=== PATIENT | female | born 1985 | race Two or more races ===

== ENCOUNTER 2017-03-08 21:52 | Emergency (ER) | payer MEDICAID ==
[~2017-03-08] VITALS: Ht 160 cm; Wt 82.0 kg
[2017-03-08] MEDS ORDERED: KETOROLAC 30 MG/1 ML ONE (22:55)
[2017-03-08] MEDS ORDERED: ONDANSETRON 2MG/ML, 2ML ONE (22:55)
[2017-03-08 22:59] LABS: HEMATOCRIT 40.9 % (34.6-47.8); HEMOGLOBIN 13.5 g/dL (11.7-16.4); WHITE BLOOD COUNT 11.5 x10^3/uL (3.4-10)
[2017-03-08] MEDS ORDERED: SODIUM CHLORIDE 0.9% 1,000ML IVBOLUS ONE (23:00)
[2017-03-08] MEDS ORDERED: ONDANSETRON 2MG/ML, 2ML IVPush ONE (23:00)
[2017-03-08] MEDS ORDERED: KETOROLAC 30 MG/1 ML IVPush ONE (23:00)
[2017-03-08 23:11] LABS: ASPARTATE AMINO TRANSFERASE 17 U/L (15-37); BLOOD UREA NITROGEN 10 mg/dL (7-18)
[2017-03-08 23:41] LABS: HCG UR LOT HCG7030192
[2017-03-08 23:53] LABS: HCG UR OBC PASS
[2017-03-09 00:56] VITALS: BP 116/67
== END 2017-03-09 00:58 | disposition home or self-care (01) ==
LOC: ED 23:59
DX: R10.32 Left lower quadrant pain (principal)
CPT/HCPCS: 36415; 80053; 81003; 81025; 83690; 85025; 96361; 96374; 96375; 99285; J1885; J2405; J7030

== ENCOUNTER 2018-11-07 20:31 | Emergency (ER) | payer MEDICAID ==
[~2018-11-07] VITALS: Ht 160 cm; Wt 70.7 kg
[2018-11-07] MEDS ORDERED: MECLIZINE CHEWABLE 25 MG TAB PO ONE (21:30)
[2018-11-07] MEDS ORDERED: MECLIZINE CHEWABLE 25 MG TAB ONE (21:41)
[2018-11-07 21:48] VITALS: BP 111/76
[2018-11-07 22:00] LABS: BASOPHILS # (AUTO) 0.05 x10^3/uL (0-0.1); BASOPHILS % (AUTO) 0 % (0-1); EOSINOPHILS # (AUTO) 0.43 x10^3/uL (0-0.4); EOSINOPHILS % (AUTO) 3 % (1-7); LYMPHOCYTES # (AUTO) 3.44 x10^3/uL (1-3.4); LYMPHOCYTES % (AUTO) 26 % (22-44); MD NO; MEAN CORPUSCULAR HEMOGLOBIN 30.7 pg (27.0-34.8); MEAN CORPUSCULAR HGB CONC 33.2 g/dL (32.4-35.8); MEAN CORPUSCULAR VOLUME 92.6 fL (80-100); MEAN PLATELET VOLUME 10.6 fL (7.4-10.4); MONOCYTES # (AUTO) 0.82 x10^3/uL (0.2-0.8); MONOCYTES % (AUTO) 6 % (2-9); NEUTROPHILS # (AUTO) 8.41 x10^3/uL (1.8-6.8); NEUTROPHILS % (AUTO) 64 % (42-75); PLATELET COUNT 294 x10^3/uL (130-400); RED BLOOD COUNT 5.16 x10^6/uL (3.82-5.3); RED CELL DISTRIBUTION WIDTH 14.2 % (9.6-15.2)
[2018-11-07 22:06] LABS: ALBUMIN 3.2 g/dL (3.4-5.0); ANION GAP 8 mmol/L (5-15); CALCIUM 8.4 mg/dL (8.5-10.1); CHLORIDE 111 mmol/L (98-107); CREATININE 0.87 mg/dL (0.55-1.02)
[2018-11-07 22:10] LABS: TROPONIN I < 0.015 ng/mL (0.000-0.045)
--- NOTE | 2018-11-07 22:14 | NUR ---
"I STILL FEEL THE SAME". THE PT REASSESSMENT FOLLOWING THE ANTIVERT.
== END 2018-11-07 22:39 | disposition home or self-care (01) ==
LOC: ED 21:44
DX: R42 Dizziness and giddiness (principal); R06.02 Shortness of breath; R00.2 Palpitations
CPT/HCPCS: 36415; 71046; 80048; 82040; 83735; 84484; 84703; 85025; 93005; 99284

== ENCOUNTER 2018-12-23 12:57 | Emergency (ER) | payer MEDICAID ==
[~2018-12-23] VITALS: Ht 160 cm; Wt 73.4 kg
[2018-12-23 13:08] VITALS: BP 99/63
[2018-12-23] MEDS ORDERED: DIAZEPAM 5 MG TABLET ONE (13:41)
[2018-12-23] MEDS ORDERED: KETOROLAC 30 MG/1 ML ONE (13:41)
[2018-12-23] MEDS ORDERED: DIAZEPAM 5 MG TABLET PO ONE (14:00)
[2018-12-23] MEDS ORDERED: KETOROLAC 30 MG/1 ML IM ONE (14:00)
== END 2018-12-23 14:43 | disposition home or self-care (01) ==
LOC: ED 13:54
DX: G56.02 Carpal tunnel syndrome, left upper limb (principal); M25.512 Pain in left shoulder; M79.632 Pain in left forearm; M79.622 Pain in left upper arm; M77.9 Enthesopathy, unspecified; Z90.49 Acquired absence of other specified parts of digestive tract; Z98.890 Other specified postprocedural states
CPT/HCPCS: 73110; 96372; 99283; J1885

== ENCOUNTER 2019-03-06 15:47 | Emergency (ER) | payer MEDICAID ==
[~2019-03-06] VITALS: Ht 160 cm; Wt 80.0 kg
--- NOTE | 2019-03-06 16:26 | NUR ---
upper stitcher: Pt ambulated independently to ED room 36 from [facility] at this time.
[2019-03-06] MEDS ORDERED: SODIUM CHLORIDE FLUSH 10ML SYR IVF ONE (16:30)
[2019-03-06 16:49] LABS: BASOPHILS # (AUTO) 0.07 x10^3/uL (0-0.1); BASOPHILS % (AUTO) 1 % (0-1); EOSINOPHILS # (AUTO) 0.66 x10^3/uL (0-0.4); EOSINOPHILS % (AUTO) 5 % (1-7); LYMPHOCYTES # (AUTO) 3.35 x10^3/uL (1-3.4); LYMPHOCYTES % (AUTO) 25 % (22-44); MD NO; MEAN CORPUSCULAR HEMOGLOBIN 32.5 pg (27.0-34.8); MEAN CORPUSCULAR HGB CONC 35.6 g/dL (32.4-35.8); MEAN CORPUSCULAR VOLUME 91.3 fL (80-100); MEAN PLATELET VOLUME 10.4 fL (7.4-10.4); MONOCYTES # (AUTO) 1.12 x10^3/uL (0.2-0.8); MONOCYTES % (AUTO) 8 % (2-9); NEUTROPHILS # (AUTO) 8.29 x10^3/uL (1.8-6.8); NEUTROPHILS % (AUTO) 62 % (42-75); PLATELET COUNT 250 x10^3/uL (130-400); RED CELL DISTRIBUTION WIDTH 13.6 % (9.6-15.2)
[2019-03-06 16:55] LABS: ALANINE AMINOTRANSFERASE 34 U/L (12-78); ALBUMIN 3.2 g/dL (3.4-5.0); ANION GAP 4 mmol/L (5-15); CHLORIDE 110 mmol/L (98-107)
[2019-03-06 16:57] LABS: ALKALINE PHOSPHATASE 90 U/L (45-117); BILIRUBIN,TOTAL 0.5 mg/dL (0.2-1.0); TOTAL PROTEIN 6.1 g/dL (6.4-8.2)
[2019-03-06 17:30] LABS: HCG UR SG 1.022 (1.003-1.030)
[2019-03-06 17:36] LABS: MICROSCOPIC INDICATED
[2019-03-06 17:37] LABS: CULTURE INDICATED? YES
--- NOTE | 2019-03-06 17:51 | NUR ---
IV PLACED AND PT READY FOR CT SCAN.
[2019-03-06] MEDS ORDERED: OMNIPAQUE 350 MG/ML, 100ML BOTTLE ONE (18:10)
--- NOTE | 2019-03-06 18:21 | NUR ---
PT BACK FROM CT SCAN AWAITING RESULTS.
--- NOTE | 2019-03-06 18:47 | NUR ---
REPORT FROM IFRAH Miller ASSUMED CARE OF PT AT THIS TIME
[2019-03-06 19:10] VITALS: BP 120/72
--- NOTE | 2019-03-06 19:49 | NUR ---
Patient/Caregiver given discharge instructions and they have confirmed that they understand the instructions. Patient ambulatory with steady gait.
== END 2019-03-06 19:50 | disposition home or self-care (01) ==
LOC: ED 19:15
DX: R10.11 Right upper quadrant pain (principal); F17.200 Nicotine dependence, unspecified, uncomplicated; Z90.49 Acquired absence of other specified parts of digestive tract
CPT/HCPCS: 36415; 74177; 80053; 81001; 81025; 83690; 85025; 87086; 93005; 99284; Q9967